=== PATIENT | male | born 1985 | race Caucasian/White ===

== ENCOUNTER 2018-06-29 21:05 | Emergency (ER) | payer OTHER ==
--- NOTE | 2018-06-29 21:07 | PDOC ---
History of Present Illness - General History Source: Patient Exam Limitations: No Limitations - General Chief Complaint: Chest Pain Stated Complaint: CHEST PAIN X 4 DAYS Time Seen by Provider: 06/29/18 21:06 - History of Present Illness Initial Comments: 06/29/18 22:04 Patient is a 33 year old male with no significant past medical history who presents to the ED with complaints of chest pain that began x4 days. Patient reports experiencing intermittent chest pain that he states has been gradually increasing in intensity over time prompting him to come into the ED for further evaluation. Patient reports chest pain is a non radiating left sided chest pain that he rates as a 5/10 in intensity when at its worst. He reports experiencing associated symptoms of pain with deep inspiration, and slight tingling down his right arm that he states does not occur necessarily at the same time as the pain. Patient reports experiencing shortness of breath but states that has been his baseline since being diagnosed with bronchitis in april. He reports experiencing dog bit that occured this morning, stating he did not irrigate or clean the bite as it did not break skin but was told to have it evaluated at the ED. Denies nausea, vomiting. Denies sweating, numbness. Denies fevers, chills. Denies contact with sick individuals, out of state travelling. Denies dysuria, hematuria. Denies diarrhea, constipation. Denies any other symptoms. Allergies: NKDA Social history: Former smoker (Last january). Social drinker. No illicit drugs. Surgical history: None PMD: None Adult ROS General: No fevers or chills, no weakness, no weight loss HEENT: No change in vision. No sore throat, No ear pain Cardiovascular: +Chest pain. +Shortness of breath. Respiratory:No cough, or wheezing. Gastrointestinal: No nausea, vomiting, diarrhea or constipation, No rectal bleeding Genitourinary: No dysuria, hematuria, or frequency Musculoskeletal: No joint or muscle pain or swelling Neurologic: No headache, vertigo, dizziness or loss of consciousness Psychiatric: No depression Skin: No rashes or easy bruising Endocrine: No increased thirst or abnormal weight change Allergic: No skin or latex allergy All other systems reviewed and normal Basic PE GENERAL: The patient is awake, alert, and fully oriented, in no acute distress. HEAD: Normal with no signs of trauma. EYES: Pupils equal, round and reactive to light, extraocular movements intact, sclera anicteric, conjunctiva clear. EXTREMITIES: Normal range of motion, no edema. NEUROLOGICAL: Normal speech, normal gait. PSYCH: Normal mood, normal affect. SKIN: +Small red area on posterior right heel. +Intact. No tenderness. No ecchymosis. Warm, Dry, normal turgor, no rashes or lesions noted. (Mel Websterew) 06/29/18 22:28 A portion of this note was documented by scribe services under my direction. I have reviewed the details of the note, within reason, and agree with the documentation. The case summary and management plan written by me. Assessment plan: This is a 33-year-old male who comes in complaining of 4 days of intermittent left sided anterior chest wall type pain. Patient has no associated symptoms with it. Patient has no cardiac risk factors. Patient's EKG was abnormal in that it showed a incomplete right bundle branch block so a troponin was sent. Patient's troponin was negative and his heart score is 1 Patient discharged home will follow-up with his primary care doctor Patient had a second complaint of a dog bite that occurred earlier in the day while on the job. The dog was a small dog that bit him on the ankle area. The skin was intact and there was a very small area of erythema. However patient said it never bled and there was no break in the skin so it required no further treatment. 06/29/18 22:30 (Daniel Ibrahim I) Past History - Past Medical History Allergies/Adverse Reactions: Allergies Allergy/AdvReac Type Severity Reaction Status Date / Time No Known Allergies Allergy Verified 06/29/18 21:07 Home Medications: Ambulatory Orders NK [No Known Home Medication] 06/29/18 - Vital Signs Last Vital Signs Temp Pulse Resp BP Pulse Ox 98.4 F 82 18 123/78 100 06/29/18 21:13 06/29/18 21:13 06/29/18 21:13 06/29/18 21:13 06/29/18 21:13 Heart Score/ECG Review - History History: Slightly suspicious - Electrocardiogram EKG: Non specific repolarization disturbance - Age Age: </= 45 - Risk Factors Based on the list above the patient has:: No risk factors known - Troponin Troponin: </= normal limit - Score Heart Score - Total: 1 - ECG Intrepretation Comment:: 06/29/18 21:45 Completed @21:42:43 normal sinus rhythm Incomplete Right bundle branch block Borderline ECG Vent. Rate 67 bpm IL interval 168 ms QRS duration 110 ms (Quirino Webster) - ADDITIONAL ORDERS Additional order review: Laboratory Results 06/29/18 21:50 Troponin I < 0.03 *DC/Admit/Observation/Transfer - Discharge Dispostion Decision to Admit order: No Diagnosis at time of Disposition: Atypical chest pain Dog bite of ankle Qualifiers: Encounter type: initial encounter Laterality: right Qualified Code(s): S91.051A - Open bite, right ankle, initial encounter; W54.0XXA - Bitten by dog, initial encounter - Discharge Dispostion Disposition: HOME Condition at time of disposition: Stable - Patient Instructions Additional Instructions: It is important that you follow-up with your primary care doctor and take your cardiogram with you when you go see her doctor. Return to the emergency department immediately with ANY new, persistent or worsening symptoms. Continue any medications as previously prescribed by your physician. You should follow up with your primary doctor as soon as possible regarding today's emergency department visit. . Please make sure your doctor reviews the results of your emergency evaluation. Thank you for coming to the Emergency Department today for your care. It was a pleasure to see you today. Please note that your evaluation is INCOMPLETE until you follow-up with your doctor. - Attestations Scribe Attestion: 06/29/18 22:04 Documentation prepared by Quirino Webster, acting as medical supply technician for Daniel Ibrahim MD. (Quirino Webster)
[2018-06-29 21:17] VITALS: BP 123/78; PULSE 82; TEMP 98.4; BMI 36.8
[2018-06-29] MEDS ORDERED: DIPHTH,PERTUSS(ACELL),TET 0.5 ML DISP.SYRIN IM ONE (22:33)
--- NOTE | 2018-06-30 10:16 | EKG ---
Test Reason : Blood Pressure : / mmHG Vent. Rate : 067 BPM Atrial Rate : 067 BPM P-R Int : 168 ms QRS Dur : 110 ms QT Int : 364 ms P-R-T Axes : 053 -11 010 degrees QTc Int : 384 ms NORMAL SINUS RHYTHM INCOMPLETE RIGHT BUNDLE BRANCH BLOCK BORDERLINE ECG NO PREVIOUS ECGS AVAILABLE Confirmed by LALA MCKENZIE MD ([id number]) on 06/30/2018 10:16:30 AM Referred By: DR HENSLEY Confirmed By:LALA MCKENZIE MD
== END 2018-06-29 22:43 | disposition home or self-care (01) ==
LOC: FER 21:05
PROC: 3E0234Z Introduction of Serum, Toxoid and Vaccine into Muscle, Percutaneous Approach (ICD-10-PCS; principal; 2018-06-29)
DX: R07.89 Other chest pain (principal); S91.051A Open bite, right ankle, initial encounter; W54.0XXA Bitten by dog, initial encounter; Y93.89 Activity, other specified; Y92.9 Unspecified place or not applicable
CPT/HCPCS: 36415; 84484; 90715; 93005; 99281-25

== ENCOUNTER 2019-04-21 20:19 | Emergency (ER) | payer OTHER ==
[2019-04-21 21:04] VITALS: BP 128/84; PULSE 72; TEMP 98.8; BMI 36.5
--- NOTE | 2019-04-21 21:12 | PDOC ---
Documentation entered by Kalina Diaz SCRIBE, acting as scribe for Daniel Ibrahim MD. Daniel Ibrahim MD: This documentation has been prepared by the tyrelibe, Kalina Diaz SCRIBE, under my direction and personally reviewed by me in its entirety. I confirm that the documentation accurately reflects all work , treatment, procedures, and medical decision making performed by me. History of Present Illness - General Chief Complaint: Abscess Boil Stated Complaint: BOIL Time Seen by Provider: 04/21/19 20:32 History Source: Patient Exam Limitations: No Limitations - History of Present Illness Initial Comments: 04/21/19 20:47 The patient is a 34-year-old male, with no past medical history, who presents to the ED with a boil on his LT testical. The patient states that the boil has been present for 1 month, but was initially larger. It has decreased in size since then and popped today, which prompted him to come to the ED. He reports that he only noted blood and no pus. The patient denies any fevers, chills, nausea, vomiting, diarrhea, or abdominal pain. He denies any chest pain or shortness of breath. He denies any urinary symptoms. PAST MEDICAL HISTORY: no significant history PAST SURGICAL HISTORY: no significant history FAMILY HISTORY: no pertinent history HISTORY: Pt lives with family and is employed. MEDICATIONS: reviewed ALLERGIES: As per nursing notes General: No fevers or chills, no weakness, no weight loss HEENT: No change in vision. No sore throat,. No ear pain CardioVascular: No chest pain or shortness of breath Respiratory:No cough, or wheezing. Gastrointestinal: no nausea, vomiting, diarrhea or constipation, No rectal bleeding Genitourinary: No dysuria, hematuria, or frequency Musculoskeletal: No joint or muscle pain or swelling Neurologic: No headache, vertigo, dizziness or loss of consciousness Psychiatric: nor depression Skin: (+)Abscess on LT testical. No rashes or easy bruising Endocrine: no increased thirst or abnormal weight change Allergic: no skin or latex allergy All other systems reviewed and normal GENERAL: The patient is awake, alert, and fully oriented, in no acute distress. HEAD: Normal with no signs of trauma. EYES: Pupils equal, round and reactive to light, extraocular movements intact, sclera anicteric, conjunctiva clear. : (+)Prominent vein on the LT testical with a firm area that appears to be within the vein. There is normal cremasteric reflex. Normal lie of the testical. No tenderness or other palpable masses. Uncircumcised penis with no discharge or lesions. EXTREMITIES: Normal range of motion, no edema. NEUROLOGICAL: Normal speech, normal gait. PSYCH: Normal mood, normal affect. SKIN: Warm, Dry, normal turgor. 04/21/19 21:10 Assessment and plan: This is a 34-year-old male comes in complaining of a swelling on his testicle that was bleeding earlier. It appears that he does have a very possible he that has thrombosed. However patient has an appointment with his primary care doctor on Thursday and will follow-up. This point there is no bleeding and no tenderness. There is no evidence of torsion. There is no other lesions. Patient discharged will follow-up with his doctor on Thursday Past History - Past Medical History Allergies/Adverse Reactions: Allergies Allergy/AdvReac Type Severity Reaction Status Date / Time No Known Allergies Allergy Verified 04/21/19 20:30 Home Medications: Ambulatory Orders NK [No Known Home Medication] 06/29/18 COPD: No - Suicide/Smoking/Psychosocial Hx Smoking History: Never smoked Have you smoked in the past 12 months: No Hx Alcohol Use: No Drug/Substance Use Hx: No Substance Use Type: None *Physical Exam - Vital Signs Last Vital Signs Temp Pulse Resp BP Pulse Ox 98.8 F 72 16 128/84 100 04/21/19 20:29 04/21/19 20:29 04/21/19 20:29 04/21/19 20:29 04/21/19 20:29 *DC/Admit/Observation/Transfer 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 Return to the emergency department immediately with ANY new, persistent or worsening symptoms. Continue any medications as previously prescribed by your physician. You should follow up with your primary doctor as soon as possible regarding today's emergency department visit. . Please make sure your doctor reviews the results of your emergency evaluation. Thank you for coming to the Emergency Department today for your care. It was a pleasure to see you today. Please note that your evaluation is INCOMPLETE until you follow-up with your doctor. - Post Discharge Activity
== END 2019-04-21 21:19 | disposition home or self-care (01) ==
LOC: FER 20:19
DX: I86.1 Scrotal varices (principal)
CPT/HCPCS: 99281-25

== ENCOUNTER 2021-05-11 17:01 | Emergency (ER) | payer OTHER ==
[2021-05-11 17:09] VITALS: TEMP 99; BMI 39.5
[2021-05-11 17:58] VITALS: BP 128/80; PULSE 65
== END 2021-05-11 18:01 | disposition home or self-care (01) ==
LOC: FER 17:01
DX: S46.212A Strain of muscle, fascia and tendon of other parts of biceps, left arm, initial encounter (principal)
CPT/HCPCS: 93005; 99284-25